=== PATIENT | male | born 1990 | race Caucasian/White ===

== ENCOUNTER 2018-01-20 01:02 | Emergency (ER) | payer BC ==
[~2018-01-20] VITALS: Ht 182.9 cm; Wt 66.7 kg
[2018-01-20 01:10] VITALS: BP 111/67
== END 2018-01-20 02:19 | disposition home or self-care (01) ==
LOC: ER 01:04
DX: S61.213A Laceration without foreign body of left middle finger without damage to nail, initial encounter (principal); Z60.2 Problems related to living alone; Z88.8 Allergy status to other drugs, medicaments and biological substances; Y28.8XXA Contact with other sharp object, undetermined intent, initial encounter; Y93.89 Activity, other specified; Y92.89 Other specified places as the place of occurrence of the external cause; Y99.8 Other external cause status
CPT/HCPCS: A4606; Z7610